=== PATIENT | male | born 1965 | race Caucasian/White ===

== ENCOUNTER 2017-10-15 13:15 | Emergency (ER) | payer OTHER ==
[~2017-10-15] VITALS: Ht 188 cm; Wt 86.2 kg
[2017-10-15] MEDS ORDERED: LEVO175T2 PO (13:35)
[2017-10-15] MEDS ORDERED: [UNRECOGNIZED DRUG - CODE] SQ (13:35)
[2017-10-15] MEDS ORDERED: HYDR-548 PO (13:35)
[2017-10-15] MEDS ORDERED: [UNRECOGNIZED DRUG - OTHER] IM (13:35)
[2017-10-15] MEDS ORDERED: ANAS1TAB PO (13:35)
[2017-10-15] MEDS ORDERED: HYDROCODONE/APAP 10-325 MG TABLET PO ONE (14:30)
[2017-10-15] MEDS ORDERED: HYDROCODONE/APAP 10-325 MG TABLET ONE (14:34)
--- NOTE | 2017-10-15 14:39 | NUR ---
MSE COMPLETED, NORCO ADMIN, PT D/C'D HOME, ACI/RX X1 GIVEN, PT AMBULATED W/O DIFF/TOOK ALL BELONGINGS.
[2017-10-15 14:41] VITALS: BP 145/8
== END 2017-10-15 14:42 | disposition home or self-care (01) ==
LOC: ER 13:15
DX: G89.29 Other chronic pain (principal); M54.5 Low back pain; M25.562 Pain in left knee; Z90.49 Acquired absence of other specified parts of digestive tract; F17.200 Nicotine dependence, unspecified, uncomplicated; Z79.891 Long term (current) use of opiate analgesic; Z79.899 Other long term (current) drug therapy
CPT/HCPCS: A4663